=== PATIENT | male | born 1960 | race Caucasian/White ===

== ENCOUNTER → 2025-08-08 08:21 | Outpatient (REF) | payer BC, SELFPAY | LOC: WOUND 08:21 | PROVIDERS: ATTENDING PHYSICIAN Surgery | DX: T81.31XA Disruption of external operation (surgical) wound, not elsewhere classified, initial encounter (principal); L97.322 Non-pressure chronic ulcer of left ankle with fat layer exposed; E11.9 Type 2 diabetes mellitus without complications; I10 Essential (primary) hypertension; Y83.8 Other surgical procedures as the cause of abnormal reaction of the patient, or of later complication, without mention of misadventure at the time of the procedure | CPT/HCPCS: 11042; 99203 ==

== ENCOUNTER → 2025-08-15 09:33 | Outpatient (REF) | payer BC, SELFPAY | LOC: WOUND 09:33 | PROVIDERS: ATTENDING PHYSICIAN Surgery | DX: T81.31XA Disruption of external operation (surgical) wound, not elsewhere classified, initial encounter (principal); Y83.8 Other surgical procedures as the cause of abnormal reaction of the patient, or of later complication, without mention of misadventure at the time of the procedure; L97.322 Non-pressure chronic ulcer of left ankle with fat layer exposed; E11.9 Type 2 diabetes mellitus without complications; I10 Essential (primary) hypertension | CPT/HCPCS: 11043 ==

== ENCOUNTER 2025-08-22 09:36 | Outpatient (REF) | payer BC, SELFPAY | END 2025-08-22 23:59 | disposition home or self-care (01) | LOC: WOUND 09:36 | PROVIDERS: ATTENDING PHYSICIAN Surgery | DX: T81.31XA Disruption of external operation (surgical) wound, not elsewhere classified, initial encounter (principal); Y83.8 Other surgical procedures as the cause of abnormal reaction of the patient, or of later complication, without mention of misadventure at the time of the procedure; L97.322 Non-pressure chronic ulcer of left ankle with fat layer exposed; E11.9 Type 2 diabetes mellitus without complications; I10 Essential (primary) hypertension | CPT/HCPCS: 11043 ==

== ENCOUNTER 2025-08-29 13:55 | Outpatient (REF) | payer BC, SELFPAY | END 2025-08-29 23:59 | disposition home or self-care (01) | LOC: WOUND 13:55 | PROVIDERS: ATTENDING PHYSICIAN Surgery | DX: T81.31XA Disruption of external operation (surgical) wound, not elsewhere classified, initial encounter (principal); L97.322 Non-pressure chronic ulcer of left ankle with fat layer exposed; E11.9 Type 2 diabetes mellitus without complications; I10 Essential (primary) hypertension; Y83.8 Other surgical procedures as the cause of abnormal reaction of the patient, or of later complication, without mention of misadventure at the time of the procedure | CPT/HCPCS: 11043 ==